=== PATIENT | male | born 1980 | race Caucasian/White ===

== ENCOUNTER 2017-01-27 20:00 | Emergency (ER) | payer OTHER ==
[~2017-01-27] VITALS: Ht 182.9 cm; Wt 95.3 kg
[2017-01-27 20:10] VITALS: BP 138/84
[2017-01-27] MEDS ORDERED: BACI3.5O8 OS (20:28)
--- NOTE | 2017-01-27 20:28 | PHYS DOC ---
Past History Past Medical History: No Pertinent History Past Surgical History: No Surgical History Smoking: Non-smoker Adult General Chief Complaint Chief Complaint: HEAD INJURY/TRAUMA HPI HPI Pleasant 36 showed male who sustained a head injury following the tailgate that struck the back of his left head. He sustained a small laceration that was immediately cleaned and dressed with some Vaseline ointment and attempt to stop the bleeding. Patient denies any loss of conscious, seizure activity, focal neurologic deficit, or other issues with changes in vision weakness or severe headache. Review of Systems Review of Systems Constitutional: Denies fever or chills [] Eyes: Denies change in visual acuity, redness, or eye pain [] HENT: Denies nasal congestion or sore throat [] Respiratory: Denies cough or shortness of breath [] Cardiovascular: No additional information not addressed in HPI [] GI: Denies abdominal pain, nausea, vomiting, bloody stools or diarrhea [] : Denies dysuria or hematuria [] Musculoskeletal: Denies back pain or joint pain [] Integument: Denies rash or skin lesions [] Neurologic: Denies headache, focal weakness or sensory changes [] Allergies Allergies Allergies Coded Allergies Type Severity Reaction Last Updated Verified No Known Drug Allergies 01/27/17 No Physical Exam Physical Exam Vital signs recorded on the chart within normal limits. Constitutional: Well developed, well nourished, no acute distress, non-toxic appearance. [] HENT: Normocephalic, small linear scalp laceration located on the posterior lateral aspect of the left parietal lobe. It measures approximately 3 cm in length.[] Eyes: PERRLA, EOMI, conjunctiva normal, no discharge. [] Neck: Normal range of motion, no tenderness, supple, no stridor. [] Cardiovascular:Heart rate regular rhythm, no murmur [] Lungs & Thorax: Bilateral breath sounds clear to auscultation [] Back: No tenderness Neurologic: Alert and oriented X 3, normal motor function, normal sensory function, no focal deficits noted. [] Psychologic: Affect normal, judgement normal, mood normal. [] EKG EKG [] Radiology/Procedures Radiology/Procedures [] Course & Med Decision Making Course & Med Decision Making Pertinent Labs and Imaging studies reviewed. (See chart for details) Patient is sustained a scalp laceration measuring 3 cm in length. Procedure note: Verbal consent was given. Competitions and side effects were discussed. Scalp laceration measuring 3 cm in length. Left parietal lobe. No obvious step-offs, no crepitus, no evidence of skull fracture. Patient's has no bleeding no foreign body noted wound was prepped and cleaned was been no scrubbing and chlorhexidine. There is a great deal of Vaseline around the wound edges we tried and attempted to remove. Patient had no foreign body noted with closure of laceration with wei. There were tape was placed without issue. Patient tolerated the procedure well. No active bleeding or loss of blood was significant. [] Dragon Disclaimer Dragon Disclaimer This chart was dictated in whole or in part using Voice Recognition software in a busy, high-work load, and often noisy Emergency Department environment. It may contain unintended and wholly unrecognized errors or omissions. Departure Departure: Impression: Primary Impression: Scalp laceration Disposition: HOME, SELF-CARE Condition: IMPROVED Referrals: PCP,UNKNOWN (PCP) Patient Instructions: Laceration Care, Adult Additional Instructions: My discharge plan Follow up: In addition patient is asked to followup with their primary doctor, within a week for followup examination and to address patient's ongoing medical conditions. Because patient does not have a regular medical doctor, a local physician Resource Sheet will be provided to establish care primary care. Patient is advised that in the Emergency Department primary complaints are addressed and only in light of known signs and symptoms. Patient should return immediately to the emergency department if new signs and symptoms develop or patient's condition worsens in any way. At time of discharge patient was in stable condition and had verbalized understanding of the discharge instructions. This follow-up here or with her PCP in 5- 7 days to have the wei removed. Please return for any signs of infection or localized swelling with increased pain Scripts Bacitracin (BACITRACIN) 3.5 Gm Oint...g. 1 CHAMP OS TID, #3.5 GM Prov: EULALIA HERNÁNDEZ MD 01/27/17 EULALIA HERNÁNDEZ MD Jan 27, 2017 20:28
== END 2017-01-27 20:35 | disposition home or self-care (01) ==
LOC: ER 20:00
DX: S01.01XA Laceration without foreign body of scalp, initial encounter (principal); W22.8XXA Striking against or struck by other objects, initial encounter; Y93.89 Activity, other specified; Y92.89 Other specified places as the place of occurrence of the external cause; Y99.8 Other external cause status
CPT/HCPCS: 12002; 99283-25

== ENCOUNTER 2017-02-02 09:40 | Emergency (ER) | payer OTHER ==
[~2017-02-02 09:40] MED LIST: BACI3.5O8 OS
[2017-02-02 09:50] VITALS: BP 128/52
--- NOTE | 2017-02-02 09:53 | PHYS DOC ---
Past History Past Medical History: No Pertinent History Past Surgical History: No Surgical History Smoking: Non-smoker Drug Use: None Adult General Chief Complaint Chief Complaint: staple removal HPI HPI Patient is a 36 year old M who presents for staple removal. Jameel had a laceration on his scalp approximately 6 days ago for which she was seen in the emergency department and wei were placed to close his wound. He has had no bleeding, drainage or other complications. Review of Systems Review of Systems Constitutional: Denies fever or chills [] Eyes: Denies change in visual acuity, redness, or eye pain [] HENT: Denies nasal congestion or sore throat [] Respiratory: Denies cough or shortness of breath [] Cardiovascular: No additional information not addressed in HPI [] GI: Denies abdominal pain, nausea, vomiting, bloody stools or diarrhea [] : Denies dysuria or hematuria [] Musculoskeletal: Denies back pain or joint pain [] Integument: Denies rash Neurologic: Denies headache, focal weakness or sensory changes [] Endocrine: Denies polyuria or polydipsia [] Family History Family History Noncontributory Current Medications Current Medications Medications reviewed Allergies Allergies Allergies Coded Allergies Type Severity Reaction Last Updated Verified No Known Drug Allergies 01/27/17 No Physical Exam Physical Exam Constitutional: Well developed, well nourished, no acute distress, non-toxic appearance. [] HENT: Normocephalic, well approximated, well granulated laceration on the posterior left scalp with [address] No surrounding erythema or other signs of infection Eyes: EOMI, conjunctiva normal, no discharge. Cardiovascular:Heart rate regular rhythm, no murmur [] Lungs & Thorax: Bilateral breath sounds clear to auscultation [] Skin: Warm, dry, no erythema, no rash. [] . [] Neurologic: Alert and oriented X 3, normal motor function, normal sensory function, no focal deficits noted. [] Psychologic: Affect normal, judgement normal, mood normal. [] Current Patient Data Vital Signs Normal vital signs. Please review nursing documentation for specifics. EKG EKG [] Radiology/Procedures Radiology/Procedures [] Course & Med Decision Making Course & Med Decision Making Pertinent Labs and Imaging studies reviewed. (See chart for details) [] Dragon Disclaimer Dragon Disclaimer This chart was dictated in whole or in part using Voice Recognition software in a busy, high-work load, and often noisy Emergency Department environment. It may contain unintended and wholly unrecognized errors or omissions. Departure Departure: Impression: Primary Impression: Encounter for staple removal Disposition: HOME, SELF-CARE Condition: STABLE Referrals: PCP,UNKNOWN (PCP) Patient Instructions: Staple Removal, Care After Additional Instructions: Jameel was seen in the emergency department for staple removal. No emergency medical condition was found on history or physical exam. His wound was clean dry and well approximated. His wei removed. He is advised follow-up with his primary care doctor as needed for further management. DELFINO MAYA MD Feb 02, 2017 09:53
== END 2017-02-02 10:08 | disposition home or self-care (01) ==
LOC: ER 09:40
DX: S01.01XD Laceration without foreign body of scalp, subsequent encounter (principal); X58.XXXD Exposure to other specified factors, subsequent encounter
CPT/HCPCS: 99281